=== PATIENT | male | born 1945 | race Caucasian/White ===

== ENCOUNTER → 2017-07-16 | Outpatient (CLI) | payer OTHER ==
[~2017-07-16] VITALS: Ht 152.4 cm; Wt 65.1 kg
[~2017-07-16] MED LIST: CALCIUM 600 +1 EAC8 PO; DEXAMETHASONE 44 M1 PO; DILTIAZEM 24HR240 M1 PO; FOSAMAX 70 MG T70 MG PO; LEVAQUIN 500 M500 M2 PO; MEFENAMIC ACID250 MG PO; PROTONIX40 M2 PO
--- NOTE | ~2017-07-16 | HPC ---
[facility] [place] [address] PAIN MANAGEMENT CONSULTATION Name: PEBBLES COCHRAN Room #: REG [facility]#: [id number] Admission: 07/16/17 Attend Phys: John Vigil MD Discharge: Date of : 47 Report #: [id number] THIS REPORT FOR: //name// CC: Clint Vigil DATE OF SERVICE: 07/16/2017 DATE OF REGISTRATION: 07/16/2017 CHIEF COMPLAINT: Low back pain. The patient returns to pain clinic today and complains of "muscle spasm" in his right side. The pain has been worse over the course of the last 6 months. The pain is nonradicular and nonradiating. It is just below the rib cage and radiates down into the area just at the level of the iliac crest. He describes it as constant pain level of 6. It has not been alleviated by medication or exercise. He is reluctant to take medication provided for him by Dr. Wilhelm. MEDICATIONS: Protonix, Fosamax, calcium carbonate. ALLERGIES: None. PAST MEDICAL HISTORY: Significant for kidney stones. REVIEW OF SYSTEMS: Negative for shortness of breath, chest pain. Bowel and bladder are fine. No urine issues at this time. No blood in the urine. He does have some nocturia. PQRS review shows that he is not on an opioid medication. He is not hypertensive. He is lean with a BMI of 19.5. Pain intensity is a 6/10. Functional assessment tool is low at 17. He is not a fall risk. Denies osteoarthritis although he has cervical and lumbar spondylosis. PHYSICAL EXAMINATION: VITAL SIGNS: Blood pressure is 129/75, heart rate 73, respirations 14, BMI actually here is noted at 19.5, which I believe is correct. MUSCULOSKELETAL: He has a very noticeable asymmetry of the low back to the right of midline. Fullness is appreciated there. That does not appear rotational component to his spine on clinical observation. Rotational movements of the spine are performed without difficulty. Forward flexion and extension are normal with some exacerbation of back pain. Localized tenderness is noted within the area of prominence. Straight leg raising is negative. IMPRESSION: Persistent right-sided low back pain with right-sided fullness. [facility] [address] [place] [address] PAIN MANAGEMENT CONSULTATION Name: PEBBLES COCHRAN Room #: REG [facility].#: [id number] Admission: 07/16/17 Attend Phys: John Vigil MD Discharge: Date of : 47 Report #: [id number] This may well be simple myofascial pain or there may be some undetectable rotational scoliosis of the lumbar spine. I am concerned, enough, however, by the prolonged nature of this pain and its clinical findings that a CAT scan of the abdomen and pelvis was ordered. This will also give us a look at the musculature of the posterior spine. I did not order contrast material. He waited for approval and a CAT scan was performed and read by Dr. Carlos Rodríguez with a very thorough reading. Although he has a small cyst in his liver, kidney stones were noted in the right kidney. There does not appear to be any mass effect in the area. This should be reassuring for him as he leaves for his trip to [place]. Following all the diagnostic workup, consideration was given to alleviating his pain with medication. I do not think trigger point injections or other treatments would be very helpful. If they would be performed, it would be just for short term relief for diagnostic purposes. I have offered a muscle relaxant. He called back to the office after leaving and I ordered him a trial of Skelaxin 500 mg tablets 12 tablets, one of the most nonsedating of the muscle relaxants he will take it in the evening. He also can take hydrocodone as offered by Dr. Wilhelm. Aggressive treatment might be the consideration of facet injections along the right side for possible spondylitic pain with referral. I will see him back as needed. By: 1716 17 John Vigil MD /nt
[2017-07-16 13:04] VITALS: BP 129/75
== END ==
LOC: CAT 07:20 → PAIN 07:20
DX: M54.5 Low back pain (principal); N20.0 Calculus of kidney; N28.1 Cyst of kidney, acquired; K76.89 Other specified diseases of liver